=== PATIENT | male | born 1995 | race African-American/Black ===

== ENCOUNTER 2025-01-22 23:44 | Emergency (ER) | payer SELFPAY ==
[2025-01-22 23:44] VITALS: BP 161/119; PULSE 82; RESP 16; TEMP 36.7; O2SAT 100; BMI 27.3
[2025-01-23] MEDS: AMOXICILLIN/CLAVULANATE POTASSIUM 875/125MG TABLET 1 EACH PO (00:44)
[2025-01-23] MEDS: TET/DIPHTH/PERT-ADULT 0.5ML SYRINGE 0.5 ML IM (00:45)
[2025-01-23] MEDS: BACITRACIN ZINC OINT 30GM TUBE TP (00:45)
[2025-01-23 01:20] VITALS: BP 160/100; PULSE 84; RESP 16; TEMP 36.7; O2SAT 99
--- NOTE | 2025-01-23 04:04 | ED_ITS ---
Discharge Plan Disposition Patient Disposition: Home, Self-Care Condition: Good Prescriptions Prescriptions: New amoxicillin-pot clavulanate 875-125 mg tablet 1 tab PO BID Qty: 10 0RF Referrals Follow up/Referrals: Provider,Referral, [Primary Care Provider, Medical] - See instructions Activity Restrictions/Add. Instructions Additional Instructions/Restrictions: You were evaluated in the ER and are believed to be appropriate for discharge at this time. Take prescribed antibiotics as directed, do not skip doses, do not stop taking it early. Keep the wounds clean and dry. Shower/bathe like normal. Wash with warm soapy water and apply the provided bacitracin ointment twice a day. Follow-up with your primary care doctor for reevaluation in 2 to 3 days. Return to the ER with any new, worsening, or otherwise concerning symptoms. Clinical Impressions Clinical Impression: Dog bite Print Language Print Language: Korean Discharge ED Provider: Mary Londono General Adult HPI General Chief complaint: Animal Bite Stated complaint: R Hand Bleeding Dog Bite Time Seen by Provider: 01/23/25 00:05 Mode of Arrival: Ambulatory Source of Information: Patient Description of Symptoms (Recalled from ER Triage Doc. by RN): Patient states he was breaking up a dog fight when he got bitten Injury noted to R 4th digit. History of Present Illness HPI narrative: Otherwise healthy 29-year-old male presents to the ER with complaints of injury to the right ring finger. Patient reports he was home when the personal dogs of the household (pitbull and ashleyky) started fighting over food. He and other family members attempted to break them up. Patient sustained injury to the tip of the right ring finger. He came to the ER for evaluation. He has full feeling and range of motion but is concerning for bleeding laceration. Unknown last tetanus. No known drug allergies. Patient has no other complaints or concerns. Related Data Previous Rx's ?Medication ?Instructions ?Recorded amoxicillin 875 mg-potassium 1 tab PO BID #10 tabs 11/09 clavulanate 125 mg tablet Allergies Allergy/AdvReac Type Severity Reaction Status Date / Time No Known Allergies Allergy Verified 01/23/25 00:29 [facility] Disclaimer: The information contained in this section may have been updated after the patient was seen, as this information can be updated by other users. Social History Smoking Status: Current some day smoker alcohol intake: current current occupational status: other Travel in the last 8 weeks?: None ROS Obtained: Yes Systems reviewed as appropriate & no additional complaints except as documented Per HPI Physical Exam General General appearance: alert and in no apparent distress Head Head exam: atraumatic and normocephalic Eye Eye exam: Present PERRL and EOMI ENT ENT exam: Present mucous membranes moist Neck Neck exam: Present normal inspection and full ROM Chest Chest inspection: Present symmetric chest wall rise Respiratory Respiratory exam: Absent respiratory distress or stridor Cardiovascular Cardiovascular exam: Present regular rate and normal rhythm Extremities Exam Extremities exam: Present full ROM Expanded Upper Extremity Exam Right: Hand L/R front image: 2 1. laceration (1.5 cm curved laceration with slight exposure of subcutaneous fat but deep structures otherwise intact, neurovascularly intact, full range of motion, no crepitus) Hand L/R back image: 2 1. Laceration involving the nailbed hemostatic, neurovascularly intact Neurological Exam Neurological exam: Present alert and oriented X3; Absent motor sensory deficit Psychiatric Psychiatric exam: Present normal affect and normal mood Skin Skin exam: Present warm and dry Medical Decision Making Medical Records Screening: Per USPSTF and CDC recommendations, given the prevalence of disease in our region, it is our hospital?s policy to screen for HIV and viral Hepatitis for all patients aged 18 and over and those with ongoing risk factors. Khadar Inquiry Pt receiving controlled substance: No Vital Signs: 01/22/25 23:44 01/23/25 01:20 Temperature 98.1 F 98.1 F Temperature Source Oral Oral Pulse Rate 84 Pulse Rate [Left Radial] 82 Respiratory Rate 16 16 Blood Pressure 160/100 H Blood Pressure [Left Arm] 161/119 H Blood Pressure Mean [Left Arm] 133 Blood Pressure Source Automatic Cuff Blood Pressure Source [Left Arm] Automatic Cuff Blood Pressure Position Sitting Blood Pressure Position [Left Arm] Sitting 02 Sat by Pulse Oximetry 100 Oxygen Delivery Method Room Air Room Air Orders (Tests/Meds): ED MEDICATIONS Discontinued Medications Generic Name Dose Route Start Last Admin Trade Name Freq PRN Reason Stop Dose Admin Amoxicillin/Clavulanate Potassium 1 each 01/23/25 00:28 01/23/25 00:44 Amoxicillin/Clavulanate Potassium 875/125mg Tablet PO 01/23/25 00:29 1 each ONCE ONE Administration Bacitracin 1 gm 01/23/25 00:28 01/23/25 00:45 Bacitracin Zinc Oint 30gm Tube TP 01/23/25 00:29 1 gm ONCE ONE Administration Tetanus/Reduced Diphtheria/Acell Pertussis 0.5 ml 01/23/25 00:28 01/23/25 00:45 Tet/Diphth/Pert-Adult 0.5ml Syringe IM 01/23/25 00:29 0.5 ml .ONCE ONE Administration Medical Decision Narrative: In summary, otherwise healthy 29-year-old male presents to the ER with wounds to the R hand from breaking up a fight between his personal dogs who are fully vaccinated. On initial evaluation patient is hemodynamically stable, afebrile, overall well-appearing, he does have complex laceration of the palmar aspect of the distal phalanx of the right ring finger as well as laceration involving the nailbed of the right ring finger but the nail is well attached, deep structures otherwise intact aside from slight exposure of subcutaneous fat on the pad of the right ring finger, full range of motion, no crepitus or deformity, neurovascularly intact, no foreign body appreciated, hemostatic. I considered the possibility of underlying fracture, foreign body, or deep structure injury but appreciate no evidence of these clinically. I do not believe patient requires any labs or imaging. Prophylactic antibiotics were administered in the ER and prescribed to the patient. I discussed options for nail care with the patient. I recommended nail removal and nailbed repair but he refused this. We discussed that use of skin glue is an option but has increased chance of poor healing, infection, scarring, and other complications. He would still prefer to pursue this. I applied glue only over the laceration on the nail. The other wounds are being allowed to close by primary intention. Bacitracin applied. Tdap booster provided. Because dogs are fully vaccinated including rabies vaccines, rabies prophylaxis is not indicated. Because these are dog bite wounds, primary closure is otherwise not indicated, they need to be able to drain and heal under secondary intention. Patient is appropriate for discharge at this time. Patient was given instructions on wound care, symptomatic management, follow up instructions, and return precautions for the emergency department. Patient indicated understanding and was discharged in stable condition. Procedures Risk/Benefits of Procedure(s) Were Explained: Yes Laceration Laceration 1: Site: finger Side (If applicable): right (Fourth digit) Size (cm): 1 (Involving nailbed but the nail is well attached) Description: linear Depth: simple, single layer Pre-repair: irrigated extensively and deep structures intact Skin layer closed with: Dermabond (Only over the nail to keep it in place and act as a natural bandage.) Critical Care Critical Care Time Critical Care Time: No
== END 2025-01-23 01:00 | disposition home or self-care (01) ==
PROVIDERS: Emergency Provider Emergency Medicine
DX: S61.254A Open bite of right ring finger without damage to nail, initial encounter (principal); W54.0XXA Bitten by dog, initial encounter
CPT/HCPCS: 12001; 90471; 90715; 99283; 99284